=== PATIENT | female | born 2000 | race Caucasian/White ===

== ENCOUNTER 2025-07-23 02:07 | Day surgery (SDC) | payer OTHER, SELFPAY ==
[2025-07-11 13:38] VITALS: BMI 29.5
--- OUTSIDE RECORDS SUMMARY | 2025-07-23 02:10 | XMS_ITS | Clinical Summary ---
Author Organization [facility] [address] [place] [id number] Care Team Providers Care Automobile Brake Bonder Name Role Phone Rebecca Soler MD Primary Care Provider [phone] Allergies Active Allergy Reactions Criticality Noted Date Comments Amoxicillin-Pot Clavulanate Nausea And Vomiting,Stomach upset Low 06/01/2016 Reaction: Stomach Cramps, Medications albuterol HFA (PROVENTIL HFA,VENTOLIN HFA,PROAIR HFA) 90 mcg/actuation inhaler Inhale 2 puffs every 6 hours. Active norgestimate-et hinyl estradiol (ORTHO TRI-CYCLEN,LIANA ESSA) 0.18/0.215/0.25 mg-35 mcg (28) per tablet Take 1 tablet by mouth daily. Active prochlorperazin e (COMPAZINE) 10 mg tablet Take 1 tablet (10 mg total) by mouth every 6 (six) hours as needed for nausea or vomiting. 30 tablet 01/27/2018 Active ibuprofen (ibuprofen) 200 mg tab/cap Take 600 mg by mouth every 6 (six) hours as needed for pain. Active acetaminophen (TYLENOL) 325 mg tablet Take 650 mg by mouth every 6 (six) hours as needed for pain. Active hyoscyamine (LEVSIN) 0.125 mg tablet Take 1 tablet (0.125 mg total) by mouth every 6 (six) hours as needed for cramping. 15 tablet 02/07/2018 Active busPIRone (BUSPAR) 10 mg tabletIndicatio ns:Generalized Anxiety Disorder Take 10 mg by mouth 3 (three) times a day Active FLUoxetine (FLUoxetine) 10 mg capsule Take 10 mg by mouth daily Patient is not sure about correct dose Active Active Problems Problem Noted Date Diagnosed Date Irritable bowel syndrome wit h both constipation and diarrhea 07/08/2018 Non-intractable vomiting with nausea 01/27/2018 Pain in wrist 05/24/2014 Thumb pain 05/24/2014 Migraine headache 07/10/2011 Resolved Problems Problem Noted Date Diagnosed Date Resolved Date Generalized abdominal pain 01/27/2018 0 11/04/2018 Medical History Medical History Date Comments Migraines Migraine Abdominal pain Asthma Irritable bowel syndrome Constipation Family History Medical History Relation Name Comments Arthritis Father Family history of arthritis - (Added by TW Conv) Low Back Pain Father Family history of low back pain - (Added by TW Conv) Arthritis Mother Family history of arthritis - (Added by TW Conv) Diabetes Mother Family history of diabetes mellitus - (Added by TW Conv) Relation Name Status Comments Father Alive Mother Alive Social History Tobacco Use Types Packs/Day Years Used Date Smoking Tobacco: Never Hookah E-cigarettes Smokeless Tobacco: Current Comments:vape, Alcohol Use Standard Drinks/Week Comments No 0 (1 standard drink = 0.6 oz pur e alcohol) Personal Safety Answer Date Recorded Getting School Help Needed Not on file 10/08 Comments No Sex and Gender Information Value Date Recorded Sex Assigned at Not on file Legal Sex Female 3:50 AM INCOME TAX ADJUSTER Gender Identity Female 07/08/2018 9:25 AM INCOME TAX ADJUSTER Sexual Orientation Not on file Last Filed Vital Signs Vital Sign Reading Time Taken Comments Blood Pressure 96/58 03/10/2019 11:37 AM CDT Pulse 57 03/10/2019 11:37 AM CDT Temperature 37.1 C (98.7 F) 03/10/2019 11:37 AM CDT Respiratory Rate 14 02/07/2018 7:03 PM CDT Oxygen Saturation 99% 03/10/2019 11:37 AM CDT Inhaled Oxygen Concentration - - Weight 58.5 kg (129 lb) 03/10/2019 11:37 AM CDT Height 172.7 cm (5' 8) 03/10/2019 11:37 AM CDT Body Mass Index 19.61 03/10/2019 11:37 AM CDT Plan of Treatment Not on file Insurance [employer] PPO POS [employer] Care Teams Automobile Brake Bonder Relationship Specialty Start Date End Date Rebecca Soler MD PCP - General Family Medicine 01/25/18
--- OUTSIDE RECORDS SUMMARY | 2025-07-23 02:10 | XMS_ITS | Clinical Summary ---
Author Organization [facility] Address [address] [place] [address] Care Team Providers Care Day Care Home Provider Name Role Phone Rebecca Soler MD Primary Care Provider [phone] Allergies Active Allergy Reactions Criticality Noted Date Comments Amoxicillin-Pot Clavulanate Diarrhea,GI Upset,Nausea and Vomiting Low 06/01/2016 Reaction: Stomach Cramps, Medications hyoscyamine 0.125 MG tablet Take 0.125 mg by mouth every 3 (three) hours as needed for Cramping. 8 Active Norgestimate-Ethiny l Estradiol 0.18/0.215/0.25 MG-35 MCG tablet Take 1 tablet by mouth daily. Active amitriptyline 25 MG tablet Take 100 mg by mouth nightly at bedtime. Active citalopram 10 MG tablet 1 Active hydrOXYzine 50 MG tablet Take 50 mg by mouth 2 (two) times daily as needed. 0 Active triazolam 0.125 MG tablet as needed. Takes prior to going to dentist 1 Active QUEtiapine 25 MG tablet 1 Active QUEtiapine 200 MG tablet Take 200 mg by mouth nightly at bedtime. Active ondansetron 4 MG tabletIndications:M igraine without status migrainosus, not intractable, unspecified migraine type Take 1 tablet (4 mg total) by mouth every 8 (eight) hours as needed for Nausea. 20 tablet 1 Active hydrocortisone 2.5 % cream APPLY TO THE AFFECTED AREA THREE TIMES DAILY FOR 5 DAYS 2 Active SUMATRIPTAN SUCCINATE OR Take by mouth as needed. Active HYDROcodone-acetami nophen (NORCO) 5-325 MG tabletIndications:A cute Pain < 3 Day Supply Take 1 tablet by mouth every 6 (six) hours as needed for Pain. Indications: Acute Pain < 3 Day Supply 8 tablet 3 Active rizatriptan (MAXALT-ALTERATION HAND) 10 MG disintegrating tablet Take 1 tablet (10 mg total) by mouth as needed for Migraine. May repeat in 2 hours if needed times one dose. Maximum 30 mg (3 doses) in 24 hours. 12 tablet 4 Active Active Problems Problem Noted Date Diagnosed Date Back pain 09/29/2019 Pharyngitis 09/29/2019 Fever 09/28/2019 Sepsis 09/28/2019 Irritable bowel syndrome wit h both constipation and diarrhea 07/08/2018 Non-intractable vomiting with nausea 01/27/2018 Head pain 05/28/2016 Pain in wrist 05/24/2014 Thumb pain 05/24/2014 Migraine headache 07/10/2011 Immunizations Immunization Administration Dates Next Due MODERNA COVID-19 (12+) MRNA, LNP-S, PF, 100 MCG/ 0.5 ML DOSE 06/04/2021,05/07/2021 Menactra 02/04/2016 Tdap (Boostrix) 01/23/2024 Family History Medical History Relation Comments Hypertension Father Diabetes Mother Hypertension Mother Relation Status Comments Father Mother Social History Tobacco Use Types Packs/Day Years Used Date Smoking Tobacco: Never Smokeless Tobacco: Never Tobacco Cessation:Counseling Given: Not Answered Comments:Vapes daily Alcohol Use Standard Drinks/Week Comments Yes 5 (1 standard drink = 0.6 oz pur e alcohol) ocassionally Humiliation, Afraid, Rape, and Kick questionnair e Answer Date Recorded Fear of Current or Ex-Partner Patient declined 0 09/28/2019 Emotionally Abused Patient declined 09/28/2019 Physically Abused Patient declined 09/28/2019 Sexually Abused Patient declined 09/28/2019 Social Connection and Isolation Panel Answer Date Recorded Frequency of Communication with Friends and Fami ly Patient declined 09/28/2019 Frequency of Social Gatherings with Friends and Family Patient declined 09/28/2019 Attends Alevism Services Patient declined 11/2019 Active Member of Clubs or Organizations Patient declined 09/28/2019 Attends Club or Organization Meetings Patient de clined 09/28/2019 Marital Status Patient declined 09/28/2019 AUDIT-C Answer Date Recorded Frequency of Alcohol Consumption 2-4 times a mon th 01/26/2020 Average Number of Drinks 3 or 4 020 Frequency of Binge Drinking Not on file 09/2019 Overall Financial Resource Strain (CARDIA) Answe r Date Recorded Difficulty of Paying Living Expenses Not hard at all 09/28/2019 PHQ-2 Answer Date Recorded Patient Health Questionnaire-2 Score 0 07/07/2022 [facility] - Occupational Stress Questionnaire Answer Date Recorded Feeling of Stress Patient declined 09/28/2019 Exercise Vital Sign Answer Date Recorde d Days of Exercise per Week Patient declined 09/27 Minutes of Exercise per Session Not asked 09/28/2019 Hunger Vital Sign Answer Date Recorded Worried About Running Out of Food in the Last Ye ar Not on file 09/28/2019 Ran Out of Food in the Last Year Never true 09/28/2019 PRAPARE - Transportation Answer Date Re corded Lack of Transportation (Medical) No 09/28/2019 Lack of Transportation (Non-Medical) No 09/28/2019 Education Answer Date Recorded What is the highest level of school you have completed or the highest degree you have received? 12th grade 09/28/2019 Comments No Sex and Gender Information Value Date Recorded Sex Assigned at Female 09/28/2019 5:34 AM SAMPLE EXAMINER Legal Sex Female 8:14 PM CDT Gender Identity Female 09/28/2019 5:34 AM SAMPLE EXAMINER Sexual Orientation Not on file Last Filed Vital Signs Vital Sign Reading Time Taken Comments Blood Pressure 146/97 12/19/2024 9:30 PM CDT Pulse 87 12/19/2024 9:30 PM CDT Temperature 36.7 C (98 F) 12/19/2024 7:52 PM CDT Respiratory Rate 17 12/19/2024 9:30 PM CDT Oxygen Saturation 96% 12/19/2024 9:30 PM CDT Inhaled Oxygen Concentration - - Weight 95.3 kg (210 lb) 12/01/2024 12:00 PM CDT Height 172.7 cm (5' 8) 12/01/2024 12:00 PM CDT Body Mass Index 31.93 12/01/2024 12:00 PM CDT Plan of Treatment Health Maintenance Due Date Last Done Comments Cervical Cancer Screening Pa p Smear (Age 21 to 29) Every 3 Years 1999 Cervical Cancer Screening 1999 Annual Physical 2002 HPV Vaccines (1 - 3-dose series) 2014 Hepatitis B Vaccines (1 of 3 - 19+ 3-dose series) 2018 COVID-19 Vaccine (3 - 2024-2 6 season) 2025 06/04/2021, 05/07/2021 Influenza Adult (#1) 2025 DTaP, Tdap and Td Vaccines ( 2 - Td or Tdap) 01/22/2034 01/23/2024 Meningococcal Vaccine Completed 02/04/2016 Hepatitis C Completed 07/08/2024 Hepatitis A Vaccines Aged Out No long er eligible based on patient's age to complete this topic Meningococcal B Vaccine Aged Out No l onger eligible based on patient's age to complete this topic Pneumococcal Vaccine: Pediatrics (0 to 5 Years) and At-Risk Patients (6 to 49 Years) Aged Out No longer eligible b ased on patient's age to complete this topic RSV Immunizations Under 20 Months Aged Out No longer eligible b ased on patient's age to complete this topic Goals Goal Patient Goal Type Associated Problems Recent Progress Patient-Stated? Author HOME TO [facility]DEPENDENT [facility] Suzanne Long RN Procedures Procedure Name Priority Date/Time Associated Diagnosis Comments HEPATITIS PANEL,ACUTE STAT 07/08/2024 12:45 PM SAMPLE EXAMINER from Last 3 Months or Most Recently Relevant to Health Maintenance Results * HEPATITIS PANEL,ACUTE (07/08/2024 12:45 PM SAMPLE EXAMINER) HEPATITIS B SURFACE AG NON-REACTI VE NON-REACTI VE 07/09/2024 4:32 PM SAMPLE EXAMINER [facility] HEP B CORE IGM NON-REACTI VE NON-REACTI VE 07/09/2024 4:32 PM SAMPLE EXAMINER [facility] HAV IGM NON-REACTI VE NON-REACTI VE 07/09/2024 4:32 PM SAMPLE EXAMINER [facility] HEPATITIS C AB NON-REACTI VE NON-REACTI VE 07/09/2024 4:32 PM SAMPLE EXAMINER [facility] 07/08/2024 12:4 5 PM SAMPLE EXAMINER Krystal Hoffman MD LABORATORY Final Resu lt [facility] [address] [place] [address], from Last 3 Months or Most Recently Relevant to Health Maintenance Insurance [employer] [employer] Advance Directives * Full Code (Latest Code Status on File) Date Activated Date Inactivated Comments 09/29/2019 1:00 PM 09/29/2019 6:37 PM Care Teams Day Care Home Provider Relationship Specialty Start Date End Date Rebecca Soler MD PCP - General FAMILY PRACTICE 09/27/19
--- OUTSIDE RECORDS SUMMARY | 2025-07-23 02:10 | XMS_ITS | Clinical Summary ---
Author Organization [facility] lin Address [address] [place] [address] Care Team Providers Care Ornamental Metalwork Designer Name Role Phone Rebecca Soler MD Primary Care Provider [phone] Social History Tobacco Use Types Packs/Day Years Used Date Smoking Tobacco: Never Assessed Comments Unknown Sex and Gender Information Value Date Recorded Sex Assigned at Not on file Legal Sex Female 7:22 PM EST Gender Identity Not on file Sexual Orientation Not on file Plan of Treatment Not on file Medical Devices Not on file Insurance [employer] Care Teams Ornamental Metalwork Designer Relationship Specialty Start Date End Date Rebecca Soler MD [address] [place] [address] PCP - General Family Medicine 06/08/20
--- OUTSIDE RECORDS SUMMARY | 2025-07-23 02:11 | XMS_ITS | Clinical Summary ---
Author Organization [facility] Address [address] [place] [address] Care Team Providers Care Assistant Elementary Teacher Name Role Phone Rebecca Soler MD Primary Care Provider Source Comments [facility],non-owned Affiliates and Associated Physician Practices is amultiple site organization consisting of ambulatory clinics and hospital sitesin [place], [place], [place] and [place]. This disclosure is being madepursuant to the Care Everywhere program and may not contain all information available regarding this patient. Last updated 18.[facility] Allergies Active Allergy Reactions Criticality Noted Date Comments Augmentin Nausea and/or Vomiting 06/01/2016 Medications * This document contains information received from the source organization and may not represent a complete record from that organization. * Be aware that medications may not be up to date on this document. Alwaysverify current medications with the patient. albuterol HFA (PROVENTIL;VENT MIRIAM;PROAIR) 108 (90 BASE) MCG/ACT inhalerIndicati ons:Asthma Inhale 2 Puffs by mouth every 6 hours as needed Active QUEtiapine (SEROQUEL) 100 MG tabletIndicatio ns:Major Depressive Disorder Take 200 mg by mouth at bedtime Active norgestim-eth estrad triphasic (TRI-LINYAH) tabletIndicatio ns:Contraceptiv e Therapy Take 1 tablet by mouth once daily Active amitriptyline (ELAVIL) 25 MG tabletIndicatio ns:Migraine Take 50 mg by mouth at bedtime Active hyoscyamine 0.125 MG tabletIndicatio ns:Bladder Spasm Take 0.125 mg by mouth every 3 hours as needed for Spasms Active hydrOXYzine hcl (ATARAX) 50 MG tabletIndicatio ns:Anxiety Take 1 tablet by mouth 2 times daily as needed (anxiety) Reasons: Feeling Anxious 28 tablet 03/11/20 20 Active Additional Information Patient taking differently:50 mg Oral4 TIMES DAILY PRN, anxiety, Indications: Anxiety, Reported on 04/30/2025 omeprazole (PriLOSEC) 40 MG capsule Take 1 (one) capsule by mouth at bedtime Active fremanezumab-vf rm (Ajovy) 225 MG/1.5ML injectionIndica tions:Tension headache,Intrac table chronic migraine without aura and without status migrainosus,Soraida ound headache Inject 1.5 mL subcutaneously every 30 days 1.5 mL 11 01/02/20 25 Active venlafaxine XR 24hr (Effexor XR) 37.5 MG capsule Take 1 (one) capsule by mouth daily with breakfast Active propranolol (Inderal) 10 MG tablet Take 1 (one) tablet by mouth 2 times daily as needed for Hypertension Active aspirin EC (Aspirin 81) 81 MG tabletIndicatio ns:Lacunar stroke (HCC) Take 1 (one) tablet by mouth once daily 30 tablet 2 02/20/20 25 Active topiramate (Topamax) 25 MG tabletIndicatio ns:Intractable chronic migraine without aura and without status migrainosus Take 2 (two) tablets by mouth 2 times daily 120 tablet 3 03/02/20 25 Active gabapentin (Neurontin) 300 MG capsuleIndicati ons:Intractable chronic migraine without aura and without status migrainosus,[place] headache,Reboun d headache Take 1 (one) capsule by mouth 2 times daily 60 capsule 5 03/02/20 25 Active eletriptan (Relpax) 40 MG tabletIndicatio ns:Intractable chronic migraine without aura and without status migrainosus,Soraida ound headache Take 1 (one) tablet by mouth daily as needed - may repeat one time for Migraine No more than two doses may be taken in 24 hours. 9 tablet 5 03/02/20 25 Active Slynd 4 MG TABS tablet 03/24/20 25 Active triamcinolone acetonide (Kenalog) 0.1 % cream 03/21/20 25 Active butalbital-acet aminophen-caffe ine (Fioricet) 50-300-40 MG capsuleIndicati ons:Intractable chronic migraine without aura and without status migrainosus TAKE 1 CAPSULE BY MOUTH ONCE DAILY NEEDED FOR MIGRAINE 20 capsule 5 06/19/20 25 Active Active Problems Problem Noted Date Diagnosed Date Moderate major depression, single episode 2019 Anxiety states 03/07/2020 Backache 09/29/2019 Irritable bowel syndrome wit h both constipation and diarrhea 07/08/2018 Non-intractable vomiting with nausea 01/27/2018 Head pain 05/28/2016 Pain in wrist 05/24/2014 Thumb pain 05/24/2014 Migraine headache 07/10/2011 Resolved Problems Problem Noted Date Diagnosed Date Resolved Date Pharyngitis 09/29/2019 03/16/2025 Fever 09/28/2019 03/16/2025 Encounters Date Type Department Care Team Description 06/25/2025 Refill [facility] - Neurology [address] [place] [phone] Vivi Lewis VENDOR ANALYST-MAINTENANCE MECHANIC MILLWRIGHT Refill Request 06/18/2025 Refill [facility] - Neurology [address] [place] [phone] Richard Diaz APRN-MAINTENANCE MECHANIC MILLWRIGHT Refill Request 06/18/2025 Refill [facility] - Neurology [address] [place] [phone] Vivi Lewis VENDOR ANALYST-MAINTENANCE MECHANIC MILLWRIGHT Refill Request 04/30/2025 10:00 AM CDT Office Visit [facility] - Neurology [address] [place] [phone] Raya Negrete PA-C Lacunar stroke (HCC) (Primary Dx) 04/30/2025 Travel 04/23/2025 Results Follow-Up [facility] - Cardiology [address] [facility] [address] [place] [address] Raya Negrete PA-C from Last 3 Months Immunizations Immunization Administration Dates Next Due MENINGOCOCCAL ACWY (MCV4P) VAC IM 02/04/2016 TDAP, HISTORIC VACCINE 01/23/2024 Family History Medical History Relation Name Comments Migraine Mother Relation Name Status Comments Mother Alive Social History Tobacco Use Types Packs/Day Years Used Date Smoking Tobacco: Never Smokeless Tobacco: Never Tobacco Cessation:Counseling Given: Not Answered Comments:nonsmoker Alcohol Use Standard Drinks/Week Comments Not Currently 0 (1 standard drink = 0.6 oz pur e alcohol) occasion PHQ-2 Answer Date Recorded Patient Health Questionnaire-2 Score 1 01/18/2025 Comments No Sex and Gender Information Value Date Recorded Sex Assigned at Not on file Legal Sex Female 10:15 AM CDT Gender Identity Not on file Sexual Orientation Not on file Last Filed Vital Signs Vital Sign Reading Time Taken Comments Blood Pressure 121/83 04/30/2025 10:21 AM CDT Pulse 85 04/30/2025 10:21 AM CDT Temperature 36.9 C (98.4 F) 04/12/2025 3:14 PM CDT Respiratory Rate 20 04/12/2025 3:14 PM CDT Oxygen Saturation 99% 04/30/2025 10:21 AM CDT Inhaled Oxygen Concentration - - Weight 91.2 kg (201 lb) 04/30/2025 10:21 AM CDT Height 172.7 cm (5' 8) 04/30/2025 10:21 AM CDT Body Mass Index 30.56 04/30/2025 10:21 AM CDT Plan of Treatment Health Maintenance Due Date Last Done Comments HIV SCREENING 2014 HPV VACCINE (1 - 3-dose series) 2014 HEPATITIS C SCREENING 01/16/2017 HEPATITIS B VACCINE (1 of 3 - 19+ 3-dose series) 2018 PAP SMEAR 01/22/2020 COVID-19 VACCINE ( - 2024-2 6 season) 2025 06/04/2021, 05/07/2021 INFLUENZA VACCINE (#1) 2025 DTAP/TDAP/TD VACCINES (2 - T d or Tdap) 01/22/2034 01/23/2024 ZOSTER VACCINE (1 of 2) 2049 MENINGOCOCCAL GROUPS A/C/Y/W VACCINE Completed 02/04/2016 DEPRESSION SCREENING Completed 01/18/2025 HIB VACCINE Aged Out No longer eligi ble based on patient's age to complete this topic MENINGOCOCCAL (Group B) VACCINE SHARED DECISION-MAKING Aged Out No longer eligible based on patient's age to complete this topic PNEUMOCOCCAL VACCINE Aged Out No long er eligible based on patient's age to complete this topic Procedures Procedure Name Priority Date/Time Associated Diagnosis Comments CARDIAC PROCEDURE ORDER 05/30/2025 from Last 3 Months Results * CARDIAC PROCEDURE ORDER (05/30/2025) 05/30/2025 Narrative 05/30/2025 Ordered by an unspecified provider. us Scanned Document CARDIAC SERVICES ORDERABLES Fin al Result from Last 3 Months Insurance [facility] [employer] Advance Directives * Full Code (Latest Code Status on File) Date Activated Date Inactivated Comments 03/07/2020 4:11 PM 03/11/2020 1:06 PM * Full Code Date Activated Date Inactivated Comments 03/07/2020 4:08 PM 03/07/2020 4:11 PM Care Teams Assistant Elementary Teacher Relationship Specialty Start Date End Date Rebecca Soler MD [address] [place] [address] PCP - General Family Medicine 04/28/16
--- OUTSIDE RECORDS SUMMARY | 2025-07-23 02:11 | XMS_ITS | Patient Health Record ---
Author Organization [facility] Address [address] [place], [place] [id number] Care Team Providers Care Environmental Health Technologist Name Role Phone JONAS Gibson Unavailable [phone] Rebecca Soler Unavailable Unavailable Reason For Referral No Information Medications Medication SIG (Take, Route, Frequency, Duration) Notes Start Date End Date Status nortriptyline 25 MG Oral Capsule ORAL nortriptyline 25 MG Oral CapsuleOriginal Medicationnortriptyline 25 MG Oral Capsule *Reorder from [employer] for eRx and Interaction Alerts* 2 Active Social History Social History Additional Details Category Social Info Options Details Migrated Social History Migrated Social History Smoking Status : Never smoked , History of tobacco use : Plan Of Treatment No Information Insurance Providers Payer Name Payer Address Payer Phone Subscriber Number Group Number Insured Name Patient Relationship to Insured Coverage Start Date Coverage End Date [employer] PPO [address] [place], [place] [id number] NOLAN ZEPEDA Natural Child - Insured has Financial Responsibility
--- OUTSIDE RECORDS SUMMARY | 2025-07-23 02:11 | XMS_ITS | Patient Health Record ---
Author Organization Formerly [facility] Address [address] [place] [address] Phone [phone] Care Team Providers Care Dye Tub Tender Name Role Phone YarKira Primary Care Provider [phone] Laurie Shankar Unavailable [phone] Allergies Allergen (clinical drug ingredient) Drug/Non Drug Allergy documented on EMR Reaction Allergy Type Onset Date Status amoxicillin / clavulanate Augmentin nausea and vomiting Drug Allergy Active Reason For Referral No Information Medications Medication SIG (Take, Route, Frequency, Duration) Notes Start Date End Date Diagnosis (ICD Code) Status Amitriptyline HCl 75 MG Tablet 1 tablet at bedtime Orally Once a day Active Omeprazole 40 MG Capsule Delayed Release 1 capsule 30 minutes before morning meal Orally Once a day Active Eletriptan Hydrobromide 40 MG Tablet Oral; Duration: 12 Days Active Propranolol HCl 20 MG Tablet 1 tablet on an empty stomach Orally twice a day; Duration: 30 days Anxiety disorder, unspecified anxiety disorder type (ICD_10 - F41.9) Active Venlafaxine HCl ER 75 MG Tablet Extended Release 24 Hour 1 capsule with food Orally Once a day; Duration: 30 days MDD (major depressive disorder), single episode, moderate (ICD_10 - F32.1) Active SEROquel XR 200 MG Tablet Extended Release 24 Hour 1 tablet in the evening Orally Once a day; Duration: 30 days MDD (major depressive disorder), single episode, moderate (ICD_10 - F32.1) Active Gabapentin 100 MG Capsule 2 capsule at bedtime Orally twice a day Active Ondansetron HCl 4 MG Tablet 1 tablet Orally Once a day Active Norgestim-Eth Estrad Triphasic 0.18/0.215/0.25 MG-25 MCG Tablet 1 tablet Orally Once a day Active hydrOXYzine HCl 50 MG Tablet 1 tablet Orally 4 times a day; Duration: 30 days Anxiety disorder, unspecified anxiety disorder type (ICD_10 - F41.9) Active Ajovy 225 MG/1.5ML Solution Auto-injector as directed Subcutaneous Active Social History Tobacco Use: Social History Observation Description Date Details (start date - stop date) Former Smoker NA - NA Sex Observation Social History Observation Description Sex Observation Female SDOH Assessments Date Tool Assessment Assessment LOINC Value Assessment Notes Goals Interventions General Notes 2024 PRAPAR E (LOINC : 01516- 5) Total Score: 5 Date Completed/Up dated: 025 Daily cannabis use- 1 bowl nightly What is your current housing situation? 05158-6 I have housing (BC61458-9) Are you worried about losing your housing? 83970-2 No (LA32-8) What is the highest level of school that you have finished? 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 Check all that apply 62758-1 I do not have problems meeting my needs Has lack of transportation k ept you from medical appointments, meetings, work or from getting things needed for daily living? 30033-3 No (LA32-8) How often do you see or talk to people that you care about and feel close to? (For example: talking to friends on the phone, visiting friends or family, going to adventism or club meetings) 43514-0 3 to 5 times a week (PO30811-9) How stressed are you? Stress is when someone feels tense, nervous, anxious, or can\t sleep at night because their mind is troubled 33767-8 Somewhat (WE97547-2) In the past year have you sp ent more than 2 nights in a row in a shelter, detention, senior care center, or juvenile correctional facility? 42863-0 No (LA32-8) Do you feel physically and emotionally safe where you currently live? 31641-9 Yes (LA33-6) In the past year, have you b een afraid of your partner or ex-partner? 91694-8 No (LA32-8) Are you a refugee? No What country are you from? [facility] PRAPARE Score: 5 Social History Social Determinants Social Info Question Answer Notes PRAPARE Date Completed/Updated: 09/19/2024 What is your current housing situation? I have h ousing Are you worried about losing your housing? No What is the highest level of school that you have finished? 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 Check all that apply I do not have problems meeting my needs Has lack of transportation k ept you from medical appointments, meetings, work or from getting things needed for daily living? No How often do you see or talk to people that you care about and feel close to? (For example: talking to friends on the phone, visiting friends or family, going to adventism or club meetings) 3 to 5 times a week How stressed are you? Stress is when someone feels tense, nervous, anxious, or can\t sleep at night because their mind is troubled Somewhat In the past year have you sp ent more than 2 nights in a row in a shelter, detention, senior care center, or juvenile correctional facility? No Are you a refugee? No What country are you from? [place] Do you feel physically and e motionally safe where you currently live? Yes In the past year, have you b een afraid of your partner or ex-partner? No PRAPARE Score: 5 Miscellaneous Social Info Question Answer Notes Method of learning: Preferred method of learning: Demonstration,Hearing Primary Social History Social Info Question Answer Notes Living Arrangement Living Arrangement: Independent Daisy ing Tobacco Use - do not use Tobacco Use: Non -smoker Single Question Alcohol Screening How many times in the past year have you had (4 for women, or 5 for men) or more drinks in a day? 50 Employment Status Employment Status: Employed Part Ra e Illicit Substance Usage Illicit Substance Usage: Yes Substance Used: Cannabis uses 1 gram most nights Interested in quitting: No Alcohol Use Alcohol Use Frequency: Monthly or less Tobacco Use: Social Info Question Answer Notes Tobacco Control (Standard) Tobacco use: Former smoker How long has it been since you last smoked? 1-5 years Additional Findings: Tobacco user e-cigarette Section Notes: Daily cannabis use- 1 bowl n ightly Problems Problem Type SNOMED Code ICD Code Dates Problem Status W/U Status Risk Notes Problem Anxiety state (570531451) Anxiety disorder, unspecified anxiety disorder type (F41.9) Added On: 023 Active confirmed Problem Moderate major depression, single episode ([id number]) MDD (major depressive disorder), single episode, moderate (F32.1) Added On: 023 Onset Date: 03/13/2020 Active confirmed Low Vital Signs Vital Sign Value Notes Appt Date Heart Rate 118 /min 09/19/2024 Respiratory Rate 18 /min 09/19/2024 Blood pressure diastolic 86 mm Hg Oximetry 99 % 09/19/2024 Height 68 in 09/19/2024 Blood pressure systolic 128 mm Hg 08/27 Weight 212.2 lbs 09/19/2024 BMI 32.26 kg/m2 09/19/2024 Encounters Date Time Type Facility Location Provider Diagnosis 09/19/19 10:00 AM Office Visit, Est Pt., Level 4 ([id number]) [address] [address] Kira Britton Anxiety disorder, unspecified anxiety disorder type F41.9 and MDD (major depressive disorder), single episode, moderate F32.1 09/19/19 10:00 AM Office Visit [address] [address] Laurie Shankar 12/08/19 11:00 AM Telehealth Office Visit, Est Pt., Level 4 ([id number]) [address] [address] Kira Sparr Anxiety disorder, unspecified anxiety disorder type F41.9 and MDD (major depressive disorder), single episode, moderate F32.1 02/01/20 11:00 AM Telehealth Office Visit, Est Pt., Level 4 ([id number]) [address] [address] Kira Sparr Anxiety disorder, unspecified anxiety disorder type F41.9 and MDD (major depressive disorder), single episode, moderate F32.1 03/07/20 11:00 AM Telehealth Office Visit, Est Pt., Level 4 ([id number]) [address] [address] Kira Sparr Anxiety disorder, unspecified anxiety disorder type F41.9 and MDD (major depressive disorder), single episode, moderate F32.1 05/23/20 10:30 AM Telehealth Office Visit, Est Pt., Level 4 ([id number]) [address] [address] Kira Sparr Anxiety disorder, unspecified anxiety disorder type F41.9 and MDD (major depressive disorder), single episode, moderate F32.1 09/05/19 10:08 AM Telephone Encounter [address] [address] Kira Sparr MDD (major depressive disorder), single episode, moderate F32.1 and Anxiety disorder, unspecified anxiety disorder type F41.9 09/12/19 08:37 AM Telephone Encounter [address] [place] [address] Kira Sparmulugeta MDD (major depressive disorder), single episode, moderate F32.1 and Anxiety disorder, unspecified anxiety disorder type F41.9 09/19/19 11:18 AM Telephone Encounter [address] [address] Kira Sparr 11/30/19 05:28 PM Telephone Encounter [address] [place] [address] Kira Sparr MDD (major depressive disorder), single episode, moderate F32.1 01/03/20 02:14 PM Telephone Encounter [address] [address] Kira Sparr MDD (major depressive disorder), single episode, moderate F32.1 and Anxiety disorder, unspecified anxiety disorder type F41.9 03/05/20 07:12 AM Telephone Encounter [address] [address] Kira Sparr Anxiety disorder, unspecified anxiety disorder type F41.9 and MDD (major depressive disorder), single episode, moderate F32.1 05/10/20 04:00 PM Telephone Encounter [address] [address] Kira Sparr Anxiety disorder, unspecified anxiety disorder type F41.9 and MDD (major depressive disorder), single episode, moderate F32.1 Assessments Encounter Date Diagnosis (ICD Code) Assessment Notes Treatment Notes Section Notes 03/05/2025 Anxiety disorder, unspecified anxiety disorder type (ICD-10 - F41.9) 03/07/2025 Anxiety disorder, unspecified anxiety disorder type (ICD-10 - F41.9) - moderate anxiety & panic attacks Hydroxy 2-3x daily depending on the day, not as been effective, Propranolol has been somewhat effective, agreeable to titrating Propranolol, prefers to continue Hydroxy -titrate Propranolol for anxiety, evaluate at follow up - continue Hydroxy, for anxiety, evaluate at follow up - titrate Venlafaxine ER for anxiety, depression, evaluate at follow up 05/10/2025 Anxiety disorder, unspecified anxiety disorder type (ICD-10 - F41.9) 05/23/2025 Anxiety disorder, unspecified anxiety disorder type (ICD-10 - F41.9) - moderate anxiety & few panic attacks Hydroxy 2-3x daily depending on the day, not as been effective, Propranolol has been somewhat effective, prefers to continue Hydroxy & Propranolol for now -continue Propranolol for anxiety, evaluate at follow up - continue Hydroxy, for anxiety, evaluate at follow up -continue Venlafaxine ER for anxiety, depression, evaluate at follow up 09/19/2024 Anxiety disorder, unspecified anxiety disorder type (ICD-10 - F41.9) --anxiety at times, feels increased anxiety is due to work situation, but feels she's managing work ok, feels it is manageable, takes Hydroxy 1-2 x daily depending on the day, --contine Hydroxy, for anxiety, evaluate at follow up 12/07/2024 Anxiety disorder, unspecified anxiety disorder type (ICD-10 - F41.9) - increased anxiety within the last month, taking Hydroxy 1-2 x daily depending on the day, doesn't feel Hydroxy has been effective, mild to severe anxiety, education provided related to effects of stopping ETOH intake and anxiety - trial Clonidine for anxiety, evaluate at follow up -_titrate Hydroxy, for anxiety, evaluate at follow up - titrate Citalopram for anxiety, depression, evaluate at follow up 01/31/2025 Anxiety disorder, unspecified anxiety disorder type (ICD-10 - F41.9) - increased anxiety since quitting drinking, has had several panic attacks. Clonidine hasn't been effective, Hydroxy 2-3x daily depending on the day, not as been effective, moderate to severe anxiety, education provided related to effects of stopping ETOH intake and anxiety - DC Clonidine - trial Propranolol for anxiety, evaluate at follow up - continue Hydroxy, for anxiety, evaluate at follow up - taper and DC Citalopram - trial Venlafaxine ER for anxiety, depression, evaluate at follow up 11/29/2024 MDD (major depressive disorder), single episode, moderate (ICD-10 - F32.1) 09/05/2024 MDD (major depressive disorder), single episode, moderate (ICD-10 - F32.1) 09/12/2024 MDD (major depressive disorder), single episode, moderate (ICD-10 - F32.1) 01/02/2025 MDD (major depressive disorder), single episode, moderate (ICD-10 - F32.1) 01/31/2025 MDD (major depressive disorder), single episode, moderate (ICD-10 - F32.1) Reasons, potential benefits, potential risks, interactions and side effects of all medications were discussed.The Patient/Guardian asked appropriate questions, appeared to understand the answers, and decided to accept the treatment and continue being followed.Alternatives and expected course without treatment were reviewed.The Patient/Guardian is aware of the need to contact the office or return for an earlier appointment if any problems or concerns arise. May also contact the 24-hour crisis hotline ([facility]), refer to the closest emergency room or call 911 if new symptoms arise of existing symptoms worsen.The Patient/Guardian is aware that this would apply to symptoms like: suicidal ideation, homicidal ideation, high risk behaviors, manic symptoms, psychotic symptoms, physical symptoms, or any other symptoms that may be dangerous to self or others.Greater than 50% of time spent on coordination and counseling where psychopharmacology as well as psychotherapeutic interventions were discussed along with review of treatments in the past.Education provided concerning need for adequate hydration. Patient/Guardian verbalized understanding of education, treatment plan and follow up.Follow-up appt performed via telephone appt with pt consent. Follow up in 3-4 weeks or sooner as needed. May self-administer or be administered own oral medication per [facility] Protocols. Provided informed consent with understanding of side effects, risks and benefits as well as alternative treatments as previously discussed and with the above recommended medications ang other aspects of the treatment program. Agrees to return sooner if symptoms worsen or suicidal or homicidal ideations occur. support and education provided concerning illness and treatment plan, risks and benefits, pt verbalized understanding of the same and agreeable _Feeling rough, experiencing increased anxiety since quitting drinking. Clonidine hasn't bee effective. Moderate depression. mood swings at times related to pain from migraines. Sleeping during the day due to migraines. Has had migraines x66 days. Has seen neurologist, will see stroke MD. Not sleeping as well at night due to sleeping during the day. Difficulty maintaining sleep. Has been exposing self to increased stimuli- light, sounds, etc to treat migraines. Ok energy and motivation, ok focus. Denies SI/HI, AH/VH. Doesn't feel Celexa has been as effective. Has been on Celexa x5 yrs or longer. Education and support related to med management, trialing Venlafaxine, taper Celexa, pt agreeable __continue Seroquel extended release formula for mood instability and irritablity, evaluate at follow up __taper and DC Celexa due to ineffectiveness - trial Venlafaxine XR for for depression and anxiety, evaluate at follow up 09/19/2024 MDD (major depressive disorder), single episode, moderate (ICD-10 - F32.1) Reasons, potential benefits, potential risks, interactions and side effects of all medications were discussed.The Patient/Guardian asked appropriate questions, appeared to understand the answers, and decided to accept the treatment and continue being followed.Alternatives and expected course without treatment were reviewed.The Patient/Guardian is aware of the need to contact the office or return for an earlier appointment if any problems or concerns arise. May also contact the 24-hour crisis hotline ([facility]), refer to the closest emergency room or call 911 if new symptoms arise of existing symptoms worsen.The Patient/Guardian is aware that this would apply to symptoms like: suicidal ideation, homicidal ideation, high risk behaviors, manic symptoms, psychotic symptoms, physical symptoms, or any other symptoms that may be dangerous to self or others.Greater than 50% of time spent on coordination and counseling where psychopharmacology as well as psychotherapeutic interventions were discussed along with review of treatments in the past.Education provided concerning need for adequate hydration. Patient/Guardian verbalized understanding of education, treatment plan and follow up.Follow-up appt performed in person in clinicFollow up in 3 MO or sooner as needed. May self-administer or be administered own oral medication per [facility] Protocols. Provided informed consent with understanding of side effects, risks and benefits as well as alternative treatments as previously discussed and with the above recommended medications ang other aspects of the treatment program. Agrees to return sooner if symptoms worsen or suicidal or homicidal ideations occur. 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 Medication has been effective, prefers to continue with same meds __continue Seroquel extended release formula for mood instability and irritablity, evaluate at follow up __continue Celexa for depression and anxiety, evaluate at follow up 12/07/2024 MDD (major depressive disorder), single episode, moderate (ICD-10 - F32.1) Reasons, potential benefits, potential risks, interactions and side effects of all medications were discussed.The Patient/Guardian asked appropriate questions, appeared to understand the answers, and decided to accept the treatment and continue being followed.Alternatives and expected course without treatment were reviewed.The Patient/Guardian is aware of the need to contact the office or return for an earlier appointment if any problems or concerns arise. May also contact the 24-hour crisis hotline ([facility]), refer to the closest emergency room or call 911 if new symptoms arise of existing symptoms worsen.The Patient/Guardian is aware that this would apply to symptoms like: suicidal ideation, homicidal ideation, high risk behaviors, manic symptoms, psychotic symptoms, physical symptoms, or any other symptoms that may be dangerous to self or others.Greater than 50% of time spent on coordination and counseling where psychopharmacology as well as psychotherapeutic interventions were discussed along with review of treatments in the past.Education provided concerning need for adequate hydration. Patient/Guardian verbalized understanding of education, treatment plan and follow up.Follow-up appt performed via telephone appt with pt consent. Follow up in 1 MO or sooner as needed. May self-administer or be administered own oral medication per [facility] Protocols. Provided informed consent with understanding of side effects, risks and benefits as well as alternative treatments as previously discussed and with the above recommended medications ang other aspects of the treatment program. Agrees to return sooner if symptoms worsen or suicidal or homicidal ideations occur. support and education provided concerning illness and treatment plan, risks and benefits, pt verbalized understanding of the same and agreeable _Anil this AM, had been in hospice, has been struggling with migraines x12 days. Medications have been changed but still having migraines. Quit drinking 2 MO ago, Dad had AUD, and she decided to quit to be healthier. Hx of cocaine use. Still using cannabis most days to improve sleep. Moderate depression. Mild to severe anxiety. Expereincing increased anxiety due to work, Grandluz passing away, health issues, taking hydroxy 2x dly and doesn't feel it's been helpful. Ok energy and motivation, ok focus. Sleeping more most days due to migraines. Denies SI/HI, AH/VH. __continue Seroquel extended release formula for mood instability and irritablity, evaluate at follow up __titrate Celexa for depression and anxiety, evaluate at follow up 03/05/2025 MDD (major depressive disorder), single episode, moderate (ICD-10 - F32.1) 03/07/2025 MDD (major depressive disorder), single episode, moderate (ICD-10 - F32.1) Reasons, potential benefits, potential risks, interactions and side effects of all medications were discussed.The Patient/Guardian asked appropriate questions, appeared to understand the answers, and decided to accept the treatment and continue being followed.Alternatives and expected course without treatment were reviewed.The Patient/Guardian is aware of the need to contact the office or return for an earlier appointment if any problems or concerns arise. May also contact the 24-hour crisis hotline ([facility]), refer to the closest emergency room or call 911 if new symptoms arise of existing symptoms worsen.The Patient/Guardian is aware that this would apply to symptoms like: suicidal ideation, homicidal ideation, high risk behaviors, manic symptoms, psychotic symptoms, physical symptoms, or any other symptoms that may be dangerous to self or others.Greater than 50% of time spent on coordination and counseling where psychopharmacology as well as psychotherapeutic interventions were discussed along with review of treatments in the past.Education provided concerning need for adequate hydration. Patient/Guardian verbalized understanding of education, treatment plan and follow up.Follow-up appt performed via telephone appt with pt consent. Follow up in 6-8 weeks or sooner as needed. May self-administer or be administered own oral medication per [facility] Protocols. Provided informed consent with understanding of side effects, risks and benefits as well as alternative treatments as previously discussed and with the above recommended medications ang other aspects of the treatment program. Agrees to return sooner if symptoms worsen or suicidal or homicidal ideations occur. support and education provided concerning illness and treatment plan, risks and benefits, pt verbalized understanding of the same and agreeable _ Moderate depression, modedrate anxiety, Mood swings & irritability with migraines and IBS exacerbation.. Ok energy and motivation, & focus. . Sleep has stabilized some, still sleeps more than usual due to migraines. Has had migraines x4-5 MO most days & IBS exacerbasion. Denies SI/HI, AH/VH. Venlafaxine has been somewhat effective. __continue Seroquel extended release formula for mood instability and irritablity, evaluate at follow up - titrate Venlafaxine XR for for depression and anxiety, evaluate at follow up 05/10/2025 MDD (major depressive disorder), single episode, moderate (ICD-10 - F32.1) 05/23/2025 MDD (major depressive disorder), single episode, moderate (ICD-10 - F32.1) Reasons, potential benefits, potential risks, interactions and side effects of all medications were discussed.The Patient/Guardian asked appropriate questions, appeared to understand the answers, and decided to accept the treatment and continue being followed.Alternatives and expected course without treatment were reviewed.The Patient/Guardian is aware of the need to contact the office or return for an earlier appointment if any problems or concerns arise. May also contact the 24-hour crisis hotline ([facility]), refer to the closest emergency room or call 911 if new symptoms arise of existing symptoms worsen.The Patient/Guardian is aware that this would apply to symptoms like: suicidal ideation, homicidal ideation, high risk behaviors, manic symptoms, psychotic symptoms, physical symptoms, or any other symptoms that may be dangerous to self or others.Greater than 50% of time spent on coordination and counseling where psychopharmacology as well as psychotherapeutic interventions were discussed along with review of treatments in the past.Education provided concerning need for adequate hydration. Patient/Guardian verbalized understanding of education, treatment plan and follow up.Follow-up appt performed via telephone appt with pt consent. Follow up in 6-8 weeks or sooner as needed. May self-administer or be administered own oral medication per [facility] Protocols. Provided informed consent with understanding of side effects, risks and benefits as well as alternative treatments as previously discussed and with the above recommended medications ang other aspects of the treatment program. Agrees to return sooner if symptoms worsen or suicidal or homicidal ideations occur. support and education provided concerning illness and treatment plan, risks and benefits, pt verbalized understanding of the same and agreeable _ Mild depression, has been manageable, modedrate anxiety, increased at times, occasional mood swings & irritability with migraines and IBS exacerbation.. Ok energy and motivation, & focus. Focus decreased at times with migraines.. Sleep has stabilized some, still sleeps more than usual due to migraines. Migraines most days, worse the last few days due to the weather. Will be seeing new specialists next month. Denies SI/HI, AH/VH. Seroquel and Venlafaxine have been mostly effective, prefers to continue with same dose for now __continue Seroquel extended release formula for mood instability and irritablity, evaluate at follow up - continue Venlafaxine XR for for depression and anxiety, evaluate at follow up 01/02/2025 Anxiety disorder, unspecified anxiety disorder type (ICD-10 - F41.9) 09/05/2024 Anxiety disorder, unspecified anxiety disorder type (ICD-10 - F41.9) 09/12/2024 Anxiety disorder, unspecified anxiety disorder type (ICD-10 - F41.9) 09/19/2024 Other Public Health Sanitarian Technician met with Hiwot Messina to assist in working on building skills to help the consumer gain confidence in their independent living skills. The designer writer practiced with Hiwot Messina implementing problem solving skills to help facilitate exploration of options to decrease stress and anxiety that accompanies her mental health diagnosis. The designer writer encouraged and engaged in critical thinking of how to use natural resources and coping skills to help manage symptoms in the moment. Public Health Sanitarian Technician also worked on modeling and practicing with the consumer healthy coping skills to reduce stress and anxiety including taking walks, breathing exercises, or utilizing therapy. 01/31/2025 Other Engaged judy oneal in suicide risk assessment. Provided risk based intervention to ensure saftey and linkage to ongoing services Plan Of Treatment No Information Insurance Providers Payer Name Payer Address Payer Phone Subscriber Number Group Number Insured Name Patient Relationship to Insured Coverage Start Date Coverage End Date [employer] [address] [place] [address] [id number] Hiwot Messina Self - patient is the insured 3 MED[address]ID [address] [place] [phone] [id number] Hiwot Messina Self - patient is the insured 3 3 [facility] [address] [place] [address] [id number] Hiwot Messina Self - patient is the insured 3 3 [employer] [address] [place] [address] [id number] Hiwot Messina Self - patient is the insured 3 Medical (General) History Medical History History ICD Code IBS Migraines Hospitalization History Reason Date(Month/Year) mental illness 2019
[2025-07-23 06:49] VITALS: BP 140/94; PULSE 97; RESP 20; TEMP 36; O2SAT 99
[2025-07-23] MEDS: LACTATED RINGERS 1,000 ML 150 ML IV CONT (06:53)
[2025-07-23 06:55] LABS: BEDSIDEPREGUCG Negative (Negative)
--- NOTE | 2025-07-23 07:14 | PM.HPGS ---
History of Present Illness History of Present Illness Consent: Risks, benefits, and alternatives have been discussed and questions answered. Patient agrees to proceed with procedure. Chief complaint: Dysphagia, unspecified Narrative: Hiwot Messina is a 25 year old female Review of Systems Review of Systems: ALL REVIEW OF SYMPYOMS ARE NEGATIVE EXCEPT THE ONES MENTIONED I HAND P. PMFSH Past Medical History Medical History (Updated 06/19/25 @ 12:18 by Anu Wise APRN) Migraine Mood disorder Anxiety Family History Family History Other Family history of arthritis Family history of malignant melanoma Hypertension Social History Social History Years smoked: 4 Smoking status: Former smoker Tobacco type: e-cigarettes/vaping Second hand tobacco smoke exposure: No Additional smoking assessment comments: currently vapes daily Alcohol intake: never Drinks per week: 4 Alcohol use details: vodka w/lemonade-4 to 8 on weekends. Substance use: current Substance use type: marijuana Other substance usage details: daily Lack of Transportation: No Lack of Food: Never True Current Housing: I Have Housing Concerned About Future Housing: No Difficulty Paying Gas/Electric Bills: No Difficulty Paying for Meds: No Currently Unemployed: No Education: High School Diploma/GED Difficulty w/ Childcare or Family Care: No Living arrangements: with family Occupation/Education: occupation Gender identity (if verbalized by the patient): Female Spiritual care concerns: No Agree to blood products: Yes Meds Home Medications and Allergies Home Medications ?Medication ?Instructions ?Recorded ?Confirmed ?Type hydroxyzine HCl 50 mg tablet 50 mg PO BID PRN itching 03/25/20 07/11/25 History eletriptan 40 mg tablet See Rx Instructions PO .COMPLEX 11/27/24 07/23/25 Rx #12 tabs alprazolam 0.5 mg tablet See Rx Instructions PO .COMPLEX #5 01/03/25 07/11/25 Rx tabs drospirenone (contraceptive) 4 mg 4 mg PO DAILY #28 tabs 02/20/25 07/23/25 Rx (28) tablet (Slynd) amitriptyline 100 mg tablet See Rx Instructions .Route 06/19/25 07/23/25 Rx .COMPLEX #30 tabs aspirin 81 mg tablet 81 mg PO DAILY 06/19/25 07/23/25 History famotidine 40 mg tablet 40 mg PO DAILY #90 tabs 06/19/25 07/23/25 Rx gabapentin 300 mg capsule 300 mg PO BID 06/19/25 07/23/25 History hyoscyamine sulfate 0.125 mg 0.125 mg PO TIDWM #90 tabs 06/19/25 07/11/25 Rx sublingual tablet ondansetron HCl 8 mg tablet 8 mg PO Q8H PRN nausea and 06/19/25 07/11/25 Rx vomiting #30 tabs quetiapine 25 mg tablet 200 mg PO DAILY 06/19/25 07/23/25 History topiramate 25 mg tablet 50 mg PO BID 06/19/25 07/23/25 History metoclopramide HCl 5 mg tablet 5 mg PO Q8H PRN nausea and 06/20/25 07/11/25 Rx (Reglan) vomiting #30 tabs omeprazole 40 mg capsule,delayed 40 mg PO DAILY 6 weeks #30 caps 06/25/25 07/23/25 Rx release Allergies Allergy/AdvReac Type Severity Reaction Status Date / Time amoxicillin (From Augmentin) Allergy Mild Vomiting Verified 07/23/25 06:31 clavulanic acid (From Allergy Mild Vomiting Verified 07/23/25 06:31 Augmentin) Vital Signs Vital Signs - 24 hr 07/23/25 06:49 Temperature 96.8 F L Pulse Rate 97 Respiratory Rate 20 Blood Pressure 140/94 H Pulse Oximetry 99 Oxygen Delivery Room Air Assessment and Plan Assessment and plan (1) Dysphagia: Code(s): R13.10 - Dysphagia, unspecified Status: Acute Plan R/O EOE. WILL DO EGD.
--- NOTE | 2025-07-23 07:20 | WPDANESEPPF ---
Anes - Initial Pre Proc Eval Procedure: Operation Date: 07/23/25 07:30 Proposed Procedures p Esophagogastroduodenoscopy - Marcus Adler MD Date/Time: 07/23/25 07:20 Surgeon: Marcus Adler MD Pre Op Diagnosis: Dysphagia, unspecified Patient Data Age: 25 Gender: F Height: 1.75 m Weight: 88.9 kg Last Vital Signs Temp 36.0 C L 07/23/25 06:49 Pulse 97 07/23/25 06:49 Resp 20 07/23/25 06:49 BP 140/94 H 07/23/25 06:49 Pulse Ox 99 07/23/25 06:49 O2 Del Method Room Air 07/23/25 06:49 Allergies Allergy/AdvReac Type Severity Reaction Status Date / Time amoxicillin (From Augmentin) Allergy Mild Vomiting Verified 07/23/25 06:31 clavulanic acid (From Allergy Mild Vomiting Verified 07/23/25 06:31 Augmentin) Home Medications ?Medication ?Instructions ?Recorded ?Confirmed ?Type hydroxyzine HCl 50 mg tablet 50 mg PO BID PRN itching 03/25/20 07/11/25 History eletriptan 40 mg tablet See Rx Instructions PO .COMPLEX 11/27/24 07/23/25 Rx #12 tabs alprazolam 0.5 mg tablet See Rx Instructions PO .COMPLEX #5 01/03/25 07/11/25 Rx tabs drospirenone (contraceptive) 4 mg 4 mg PO DAILY #28 tabs 02/20/25 07/23/25 Rx (28) tablet (Slynd) amitriptyline 100 mg tablet See Rx Instructions .Route 06/19/25 07/23/25 Rx .COMPLEX #30 tabs aspirin 81 mg tablet 81 mg PO DAILY 06/19/25 07/23/25 History famotidine 40 mg tablet 40 mg PO DAILY #90 tabs 06/19/25 07/23/25 Rx gabapentin 300 mg capsule 300 mg PO BID 06/19/25 07/23/25 History hyoscyamine sulfate 0.125 mg 0.125 mg PO TIDWM #90 tabs 06/19/25 07/11/25 Rx sublingual tablet ondansetron HCl 8 mg tablet 8 mg PO Q8H PRN nausea and 06/19/25 07/11/25 Rx vomiting #30 tabs quetiapine 25 mg tablet 200 mg PO DAILY 06/19/25 07/23/25 History topiramate 25 mg tablet 50 mg PO BID 06/19/25 07/23/25 History metoclopramide HCl 5 mg tablet 5 mg PO Q8H PRN nausea and 06/20/25 07/11/25 Rx (Reglan) vomiting #30 tabs omeprazole 40 mg capsule,delayed 40 mg PO DAILY 6 weeks #30 caps 06/25/25 07/23/25 Rx release Laboratory Tests 07/23/25 06:49 POC Urine HCG, Qual Negative (Negative) Patient hx anesthesia problems: none Family hx anesthesia problems: none Results Review: All pre-operative results and documents have been reviewed as part of the pre-operative evaluation. [facility] Past Medical History Medical History Migraine Mood disorder Anxiety Family History Family History Other Family history of arthritis Family history of malignant melanoma Hypertension Social History Social History Years smoked: 4 Smoking status: Former smoker Tobacco type: e-cigarettes/vaping Second hand tobacco smoke exposure: No Additional smoking assessment comments: currently vapes daily Alcohol intake: never Drinks per week: 4 Alcohol use details: vodka w/lemonade-4 to 8 on weekends. Substance use: current Substance use type: marijuana Other substance usage details: daily Lack of Transportation: No Lack of Food: Never True Current Housing: I Have Housing Concerned About Future Housing: No Difficulty Paying Gas/Electric Bills: No Difficulty Paying for Meds: No Currently Unemployed: No Education: High School Diploma/GED Difficulty w/ Childcare or Family Care: No Living arrangements: with family Occupation/Education: occupation Gender identity (if verbalized by the patient): Female Spiritual care concerns: No Agree to blood products: Yes Anes - Eval Final PreProcedure Day of Procedure 07/23/25 07:20 Patient weight: overweight Heart: regular rate and rhythm Lungs: clear to auscultation Airway: Mallampati scale class II Neurological: alert and oriented Last oral intake: >/= 8 hours ASA classification: III Emergent: no Anesthetic plan: proceed Anesthesia type and monitoring: general GIVS and standard monitoring Results Review: All pre-operative results and documents have been reviewed as part of the pre-operative evaluation. Informed Consent: The patient's anesthetic plan and its attendant risks and benefits were discussed with the patient/family/POA. Questions were solicited and answers provided to the satisfaction of the patient/family/POA.
--- NOTE | 2025-07-23 07:29 | S_PTH ---
PATIENT: Hiwot Messina LOC: [facility]#:[id number] AGE/SX: 25/F ROOM: RE07/23/[address]: Marcus Adler MD : [id number] BED: DIS: 07/23/2025 SPEC #: [id number] RECD: 07/23/25 08:15 STATUS: EMILY REShanell #: [id number] ANGIE: 07/23/25 07:[address]: Armida Olmstead DEPT: [facility] Surgical RECD BY: Linh Le ENTERED: 07/23/25 08:15 SP TYPE: Surgical OTHR DR: MARGI Ray MD Tissues: A - Esophageal Biopsy Procedures: Hematoxylin and Eosin Stain Gross and Microscopic Level 4
[2025-07-23 07:33] VITALS: BP 119/100; PULSE 95; RESP 23; O2SAT 94
[2025-07-23 07:47] VITALS: BP 94/59; PULSE 87; RESP 19; O2SAT 98
--- NOTE | 2025-07-23 07:48 | SUR.PHASEII ---
Patient vomiting bile and coughing when arriving to post op at 0733. Patient repositioned upright and on left side. Once she was more alert, vomiting subsided.
[2025-07-23 07:57] VITALS: BP 103/63; PULSE 82; RESP 20; O2SAT 98
== END 2025-07-23 08:08 | disposition home or self-care (01) ==
PROVIDERS: Anesthesiology; Internal Medicine Gastroenterology; PCP Student in an Organized Health Care Education/Training Program; Referring Provider Nurse Practitioner; Visit Provider Internal Medicine Gastroenterology
PROC: 0DJ08ZZ Inspection of Upper Intestinal Tract, Via Natural or Artificial Opening Endoscopic (ICD-10-PCS; principal; 2025-07-23 07:30)
DX: R13.10 Dysphagia, unspecified (principal); K44.9 Diaphragmatic hernia without obstruction or gangrene; F17.290 Nicotine dependence, other tobacco product, uncomplicated; F12.90 Cannabis use, unspecified, uncomplicated
CPT/HCPCS: 43239; 88305; J2003; J2704; J7120